=== PATIENT | male | born 1975 | race African-American/Black ===

== ENCOUNTER 2023-08-27 10:28 | Outpatient (AMB) | payer OTHER, SELFPAY ==
--- NOTE | 2023-08-27 10:26 | MHC.OFFVIS ---
Intake Vital Signs 08/27/23 10:30 Height 5 ft 8 in Weight 187 lb 6 oz BMI 28.5 BP 114/66 Blood Pressure Location Rt brachial Position Sitting Pulse 93 Pulse Source Pulse Oximeter Pulse Oximetry (%) 98 Oxygen Delivery Method Room Air Intake Visit Reasons: Proteinuria/ Confirmed Allergies No Known Allergies Allergy (Verified 08/27/23 10:31) HPI HPI Comments History of Present Illness Details I had the privilege of seeing Mr. Ferraro in consultation for high serum creatinine. He is 47 years of age and has been in good health. His serum creatinine had been fluctuating between 1.3-1.5 for the last couple years, 1.5 being quite recent. He is not a diabetic or hypertensive. He has no history of drug use. He has no history of proteinuria, retinopathy or LVH. He used to take nonsteroidal anti-inflammatories for migraine and PPI for acid reflux. Ever since his recent lab work, he seldom takes both of them. He does not have any nausea, vomiting, diarrhea, shortness of breath, proximal nocturnal dyspnea, orthopnea, pedal edema, hematuria, renal stones, coronary artery disease, congestive heart failure, carotid stenosis, peripheral arterial disease, renal artery stenosis, new bone or back pain. He never had any history of high serum calcium. He denies any history of hepatitis or HIV. He does not get any recurrent sore throat, epistaxis, hemoptysis, photosensitivity, skin rashes. He has no sensorineural hearing deficits. He has no acral tingling or paresthesia. He has been having some cough and some weight loss. He feels he is going through a lot of stressors at work and is currently going through divorce. He is concerned about his high serum creatinine. One of his elder brothers has CKD and diabetes mellitus. [facility] Medical History Allergic rhinitis Hyperlipidemia Eczema Contact dermatitis Migraine Pain of left hip joint Knee pain, left GERD (gastroesophageal reflux disease) Wrist joint pain Li's palsy Ventricular premature complex Palpitations Vitamin D deficiency Surgical History S/P rotator cuff repair Family History Father Malignant neoplasm of lung Social History Patient Tobacco Use Status: Never used Tobacco Review of Systems Const All systems reviewed & are unremarkable except as noted in HPI and below Physical Exam Vital Signs: Last Vital Signs Pulse 93 08/27/23 10:30 BP 114/66 08/27/23 10:30 Pulse Ox 98 08/27/23 10:30 Oxygen Delivery Method Room Air 08/27/23 10:30 BMI result Body Mass Index 28.5 Const General: comfortable and no acute distress Orientation/consciousness: patient oriented x3 HEENT Head: Yes normocephalic Mouth: Normal oral and palatal mucosa present Eyes EOM: EOMs intact bilaterally Neck Neck: Yes supple Resp Auscultation: clear to auscultation bilaterally Cardio Jugular venous distension: no JVD Rate: regular rate GI Palpation (GI): Soft to palpation Auscultation: normal bowel sounds General: Yes no CVA tenderness Back/Spine/Pelvis Back: no CVA tenderness Skin General skin exam: no rashes or lesions noted Neuro General: patient oriented x3 and moves all extremities Extrem General: Yes no pedal edema Assessment & Plan Assessment & Plan (1) High serum creatinine: Code(s): R79.89 - Other specified abnormal findings of blood chemistry Plan Mr Ferraro has been having fluctuating higher creatinine than usual for the last couple years, 1.5 being the recent one. He has increased muscle mass. He does not take any creatine. Whether he had an VERONICA in the past with resultant drop in GFR or his higher serum creatinine is due to nonsteroidal anti-inflammatory intake/PPI need to be ascertained. If both are ruled out, it can also be due to his higher muscle mass. I have ordered extensive workup including blood work and urine studies as well as renal ultrasound. If he has lower GFR and a definite etiology has not been detected, he may need a renal biopsy. He is avoiding nonsteroidal anti-inflammatories and PPI for now which I encouraged. He needs to maintain hydration. I did not make any medication changes today. All these possibilities have been discussed in detail and I answered all his questions. Further management has been involving data. Follow-up appointment given in a month Orders: Orders Hepatitis B Surface Antigen Today R79.89 - Other specified abnormal findings of blood chemistry ACACIA Reflex Titer and Pattern Today R79.89 - Other specified abnormal findings of blood chemistry Neutrophil Cytoplasma Ab Today R79.89 - Other specified abnormal findings of blood chemistry Myeloperoxidase Antibody Today R7. - Other specified abnormal findings of blood chemistry Complement C3 Today R7. - Other specified abnormal findings of blood chemistry Complement C4 Today R7. - Other specified abnormal findings of blood chemistry Parathyroid Hormone Intact Today R7. - Other specified abnormal findings of blood chemistry CK, Total+Isoenzymes, Serum Today R7. - Other specified abnormal findings of blood chemistry US renal BI Today R7. - Other specified abnormal findings of blood chemistry Blood Urea Nitrogen Today R79. - Other specified abnormal findings of blood chemistry Electrolytes Today R7. - Other specified abnormal findings of blood chemistry Calcium Today R7. - Other specified abnormal findings of blood chemistry Creatinine Today R7. - Other specified abnormal findings of blood chemistry Hepatitis B Surface Antibody Today R7. - Other specified abnormal findings of blood chemistry Hepatitis B Core Antibody Today R7. - Other specified abnormal findings of blood chemistry Anti DNA DS Antibody Today R7. - Other specified abnormal findings of blood chemistry Proteinase 3 PR3 Antibodies Today R79. - Other specified abnormal findings of blood chemistry Anti Glomerular Basement Memb Today R7. - Other specified abnormal findings of blood chemistry Streptolysin O Antibody Today R7. - Other specified abnormal findings of blood chemistry Immunofixation Pnl, Serum Today R79. - Other specified abnormal findings of blood chemistry Phospholipase A2 Receptor Pnl Today R7. - Other specified abnormal findings of blood chemistry Protein Creatinine Ratio, Ur Today R7. - Other specified abnormal findings of blood chemistry Creatinine Clearance Urine Today R7. - Other specified abnormal findings of blood chemistry Coding Level of Care Code New Pt Level 4 (69673) Diagnoses High serum creatinine
[2023-08-27 10:30] VITALS: BP 114/66; PULSE 93; O2SAT 98; BMI 28.5
== END 2023-08-27 11:01 | disposition home or self-care (01) ==
PROVIDERS: PCP Pediatrics; Visit Provider Internal Medicine Nephrology
DX: R79.89 Other specified abnormal findings of blood chemistry (principal)
CPT/HCPCS: 99204

== ENCOUNTER → 2023-08-27 10:28 | Outpatient (BNVA) | payer OTHER, SELFPAY | PROVIDERS: PCP Pediatrics; Visit Provider Internal Medicine Nephrology ==

== ENCOUNTER 2023-09-06 15:07 | Outpatient (REF) | payer OTHER, SELFPAY ==
--- NOTE | ~2023-09-06 | US_ITS ---
EXAMINATION: US RETROPERITONEAL LIMITED (RENAL ONLY) CLINICAL INFORMATION: Elevated creatinine.. COMPARISON: None available. TECHNIQUE: Routine grayscale imaging of kidneys is performed. FINDINGS: RIGHT KIDNEY: 9.3 x 4.4 x 4.2 cm (SAG x AP x TRV). The kidney is normal in size, contour, and echogenicity. Renal cortical thickness is normal. No calculi or focal parenchymal lesions. No hydronephrosis. LEFT KIDNEY: 10.2 x 4.8 x 5.4 cm (SAG x AP x TRV). The kidney is normal in size, contour, and echogenicity. Renal cortical thickness is normal. No calculi or focal parenchymal lesions. No hydronephrosis. US/US renal BI IMPRESSION: Unremarkable renal ultrasound.
== END 2023-09-06 15:08 | disposition home or self-care (01) ==
LOC: HO.US 15:07
PROVIDERS: PCP Pediatrics; Visit Provider Internal Medicine Nephrology
DX: R79.89 Other specified abnormal findings of blood chemistry (principal)
CPT/HCPCS: 76775

== ENCOUNTER 2023-10-01 10:59 | Outpatient (AMB) | payer OTHER, SELFPAY ==
[2023-10-01 11:18] VITALS: BP 122/84; PULSE 71; O2SAT 98; BMI 28.0
--- NOTE | 2023-10-01 11:18 | HO.NEPHOV_ITS ---
HPI HPI Comments History of Present Illness Details I had the privilege of seeing Mr. Ferraro in follow up for high serum creatinine. He is 47 years of age and has been in good health. His serum creatinine had been fluctuating between 1.3-1.5 for the last couple years, 1.5 being quite recent. He is not a diabetic or hypertensive. He has no history of drug use. He has no history of proteinuria, retinopathy or LVH. He used to take nonsteroidal anti-inflammatories for migraine and PPI for acid reflux. Ever since his recent lab work, he seldom takes both of them. He does not have any nausea, vomiting, diarrhea, shortness of breath, proximal nocturnal dyspnea, orthopnea, pedal edema, hematuria, renal stones, coronary artery disease, congestive heart failure, carotid stenosis, peripheral arterial disease, renal artery stenosis, new bone or back pain. He never had any history of high serum calcium. He denies any history of hepatitis or HIV. He does not get any recurrent sore throat, epistaxis, hemoptysis, photosensitivity, skin rashes. He has no sensorineural hearing deficits. He has no acral tingling or paresthesia. He has been having some cough and some weight loss. He feels he is going through a lot of stressors at work and is currently going through divorce. He is concerned about his high serum creatinine. One of his elder brothers has CKD and diabetes mellitus. [facility] Medical History Allergic rhinitis Hyperlipidemia Eczema Contact dermatitis Migraine Pain of left hip joint Knee pain, left GERD (gastroesophageal reflux disease) Wrist joint pain Li's palsy Ventricular premature complex Palpitations Vitamin D deficiency Surgical History S/P rotator cuff repair Family History Father Malignant neoplasm of lung Social History Patient Tobacco Use Status: Never used Tobacco Vital Signs 10/01/23 11:18 Height 5 ft 8 in Weight 184 lb 6 oz BMI 28.0 BP 122/84 Blood Pressure Location Lt brachial Position Sitting Pulse 71 Pulse Source Pulse Oximeter Pulse Oximetry (%) 98 Oxygen Delivery Method Room Air Physical Exam Vital Signs: Last Vital Signs Pulse 71 10/01/23 11:18 BP 122/84 10/01/23 11:18 Pulse Ox 98 10/01/23 11:18 Oxygen Delivery Method Room Air 10/01/23 11:18 BMI result Body Mass Index 28.0 Const General: comfortable and no acute distress Orientation/consciousness: patient oriented x3 HEENT Head: Yes normocephalic Mouth: Normal oral and palatal mucosa present Eyes EOM: EOMs intact bilaterally Neck Neck: Yes supple Resp Auscultation: clear to auscultation bilaterally Cardio Jugular venous distension: no JVD Rate: regular rate GI Palpation (GI): Soft to palpation Auscultation: normal bowel sounds General: Yes no CVA tenderness Back/Spine/Pelvis Back: no CVA tenderness Skin General skin exam: no rashes or lesions noted Neuro General: patient oriented x3 and moves all extremities Extrem General: Yes no pedal edema Assessment & Plan Assessment & Plan (1) High serum creatinine: Code(s): R79.89 - Other specified abnormal findings of blood chemistry Plan Mr Ferraro has been having fluctuating higher creatinine than usual for the last couple years, 1.5 being the recent one. He has increased muscle mass. He does not take any creatine. Whether he had an VERONICA in the past with resultant drop in GFR or his higher serum creatinine is due to nonsteroidal anti-inflammatory intake/PPI need to be ascertained. If both are ruled out, it can also be due to his higher muscle mass. I have ordered extensive workup including blood work and urine studies . His renal ultrasound was unremarkable. If he has lower GFR and a definite etiology has not been detected, he may need a renal biopsy. He is avoiding nonsteroidal anti-inflammatories and PPI for now which I encouraged. He needs to maintain hydration. I did not make any medication changes today. All these possibilities have been discussed in detail and I answered all his questions. Further management has been involving data. Follow-up appointment given Coding Level of Care Code Est Pt Level 3 (89656) Diagnoses High serum creatinine R79.89 Results Reviewed Nephrology Results: Renal US 09/06/23
== END 2023-10-01 11:58 | disposition home or self-care (01) ==
PROVIDERS: PCP Pediatrics; Visit Provider Internal Medicine Nephrology
DX: R79.89 Other specified abnormal findings of blood chemistry (principal)
CPT/HCPCS: 99213

== ENCOUNTER → 2023-10-01 10:59 | Outpatient (BNVA) | payer OTHER, SELFPAY | PROVIDERS: PCP Pediatrics; Visit Provider Internal Medicine Nephrology ==

== ENCOUNTER 2023-10-01 11:39 | Outpatient (REF) | payer OTHER, SELFPAY ==
[2023-10-01 13:00] LABS: Anion Gap 9 (12-20); Blood Urea Nitrogen 9 mg/dL (9-16); Calcium 9.9 mg/dL (8.4-10.2); Carbon Dioxide 31 mmol/L (22-29); Chloride 105 mmol/L (96-108); Estimated Glomerular Filt Rate > 60; Potassium 4.1 mmol/L (3.3-5.1); Sodium 141 mmol/L (135-145)
[2023-10-01 13:11] LABS: Parathyroid Hormone Intact 24.3 pg/mL (8.7-77.1)
[2023-10-02 04:43] LABS: HBc Num1 0.07 S/CO (0.00-0.79); Hepatitis B Core Antibody Nonreactive (Nonreactive); Hepatitis B Surface Antigen Negative (Negative); ~Hepatitis B Surface Antibody NONREACTIVE (Nonreactive)
[2023-10-02 17:23] LABS: Streptolysin O Antibody <50 IU/mL (<200)
[2023-10-04 11:49] LABS: Neutrophil Cyto Ab Screen NEGATIVE (NEGATIVE)
[2023-10-04 13:19] LABS: IgA 187 mg/dL (47-310); IgG 1311 mg/dL (600-1640); IgM 58 mg/dL (50-300)
[2023-10-05 14:44] LABS: Anti Nuclear Antibody Screen NEGATIVE (NEGATIVE)
[2023-10-05 23:34] LABS: CK-BB None Detected (None Detected); CK-MB 0 % (<5); CK-MM 100 % (95-100); Creatine Kinase,Total,Serum 129 U/L (44-196)
[2023-10-08 07:38] LABS: Anti DNA DS Antibody <1 IU/mL; Anti Glomerular Basement Memb <1.0 AI; Myeloperoxidase Antibody <1.0 AI; Proteinase 3 PR3 Antibodies <1.0 AI
[2023-10-09 16:48] LABS: Phospholipase A2 IgG ELISA <4 RU/mL; Phospholipase A2 IgG IFA NEGATIVE (NEGATIVE)
== END 2023-10-01 11:40 | disposition home or self-care (01) ==
LOC: HO.HKASLDS 11:39
PROVIDERS: Visit Provider Internal Medicine Nephrology
DX: R79.89 Other specified abnormal findings of blood chemistry (principal)
CPT/HCPCS: 36415; 80051; 82310; 82552; 82565; 82784; 83520; 83970; 84520; 86021; 86036; 86038; 86060; 86160; 86225; 86255; 86334; 86704; 86706; 87340

== ENCOUNTER 2023-10-07 11:12 | Outpatient (REF) | payer OTHER, SELFPAY ==
[2023-10-07 12:13] LABS: Estimated Glomerular Filt Rate 51
[2023-10-07 13:48] LABS: Creatinine (CrCl) 1.48 mg/dL (0.5-1.4)
[2023-10-07 13:52] LABS: Total Volume 24 Hour Urine 975 mL
[2023-10-07 14:38] LABS: Creatinine, 24Hr Urine 1.9 G/Day (1.0-2.0); Creatinine, mg/dL 198.92
== END 2023-10-07 11:13 | disposition home or self-care (01) ==
LOC: HO.LAB 11:12
PROVIDERS: Visit Provider Internal Medicine Nephrology
DX: R79.89 Other specified abnormal findings of blood chemistry (principal)
CPT/HCPCS: 36415; 82565; 82575

== ENCOUNTER 2024-01-02 10:03 | Outpatient (AMB) | payer OTHER, SELFPAY ==
--- NOTE | 2024-01-02 10:07 | HO.NEPHOV_ITS ---
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 Ferraro in follow up for high serum creatinine. He is 47 years of age and has been in good health. His serum creatinine had been fluctuating between 1.3-1.5 for the last couple years, 1.5 being quite recent. He is not a diabetic or hypertensive. He has no history of drug use. He has no history of proteinuria, retinopathy or LVH. He used to take nonsteroidal anti-inflammatories for migraine and PPI for acid reflux. Ever since his recent lab work, he seldom takes both of them. He does not have any nausea, vomiting, diarrhea, shortness of breath, proximal nocturnal dyspnea, orthopnea, pedal edema, hematuria, renal stones, coronary artery disease, congestive heart failure, carotid stenosis, peripheral arterial disease, renal artery stenosis, new bone or back pain. He never had any history of high serum calcium. He denies any history of hepatitis or HIV. He does not get any recurrent sore throat, epistaxis, hemoptysis, photosensitivity, skin rashes. He has no sensorineural hearing deficits. He has no acral tingling or paresthesia. He has been having some cough and some weight loss. He feels he is going through a lot of stressors at work and is currently going through divorce. He is concerned about his high serum creatinine. One of his elder brothers has CKD and diabetes mellitus. [facility] Medical History Allergic rhinitis Hyperlipidemia Eczema Contact dermatitis Migraine Pain of left hip joint Knee pain, left GERD (gastroesophageal reflux disease) Wrist joint pain Li's palsy Ventricular premature complex Palpitations Vitamin D deficiency Surgical History S/P rotator cuff repair Family History Father Malignant neoplasm of lung Social History Patient Tobacco Use Status: Never used Tobacco Review of Systems Const All systems reviewed & are unremarkable except as noted in HPI and below Physical Exam Vital Signs: Last Vital Signs Pulse 84 01/02/24 10:08 BP 114/80 01/02/24 10:08 Pulse Ox 98 01/02/24 10:08 Oxygen Delivery Method Room Air 01/02/24 10:08 BMI result Body Mass Index 27.1 Const General: comfortable and no acute distress Orientation/consciousness: patient oriented x3 HEENT Head: Yes normocephalic Mouth: Normal oral and palatal mucosa present Eyes EOM: EOMs intact bilaterally Neck Neck: Yes supple Resp Auscultation: clear to auscultation bilaterally Cardio Jugular venous distension: no JVD Rate: regular rate GI Palpation (GI): Soft to palpation Auscultation: normal bowel sounds General: Yes no CVA tenderness Back/Spine/Pelvis Back: no CVA tenderness Skin General skin exam: no rashes or lesions noted Neuro General: patient oriented x3 and moves all extremities Extrem General: Yes no pedal edema Results Reviewed Nephrology Results: Sodium 141 mmol/L (135-145) 10/01/23 Potassium 4.1 mmol/L (3.3-5.1) 10/01/23 Chloride 105 mmol/L (96-108) 10/01/23 Carbon Dioxide 31 mmol/L (22-29) H 10/01/23 BUN 9 mg/dL (9-16) 10/01/23 Creatinine 1.48 mg/dL (0.5-1.4) H 10/07/23 Calcium 9.9 mg/dL (8.4-10.2) 10/01/23 PTH Intact 24.3 pg/mL (8.7-77.1) 10/01/23 Renal US 09/06/23 Assessment & Plan Assessment & Plan (1) High serum creatinine: Code(s): R79.89 - Other specified abnormal findings of blood chemistry Category: Medical Plan Mr Ferraro has been having fluctuating higher creatinine than usual for the last couple years, 1.5 being the recent one. He has increased muscle mass. He does not take any creatine. Whether he had an VERONICA in the past with resultant drop in GFR or his higher serum creatinine need to be ascertained. If both are ruled out, it can also be due to his higher muscle mass. I have ordered extensive workup including blood work and urine studies which has been unrevealing . His renal ultrasound was unremarkable. If he has lower GFR and a definite etiology has not been detected, he may need a renal biopsy. He is avoiding nonsteroidal anti-inflammatories and PPI for now which I encouraged. He needs to maintain hydration. I did not make any medication changes today. All these possibilities have been discussed in detail and I answered all his questions. Further management has been involving data. Follow-up appointment given Orders: Orders Blood Urea Nitrogen Today R7. - Other specified abnormal findings of blood chemistry Creatinine Clearance Urine 24U Today - Other specified abnormal findings of blood chemistry Creatinine 6 Months R7. - Other specified abnormal findings of blood chemistry Creatinine Today - Other specified abnormal findings of blood chemistry Electrolytes Today - Other specified abnormal findings of blood chemistry Blood Urea Nitrogen 6 Months . - Other specified abnormal findings of blood chemistry Electrolytes 6 Months . - Other specified abnormal findings of blood chemistry Coding Level of Care Code Est Pt Level 4 (03604) Diagnoses High serum creatinine .
[2024-01-02 10:08] VITALS: BP 114/80; PULSE 84; O2SAT 98; BMI 27.1
== END 2024-01-02 10:49 | disposition home or self-care (01) ==
PROVIDERS: PCP Pediatrics; Visit Provider Internal Medicine Nephrology
DX: R79.89 Other specified abnormal findings of blood chemistry (principal)
CPT/HCPCS: 99214

== ENCOUNTER → 2024-01-02 10:03 | Outpatient (BNVA) | payer OTHER, SELFPAY | PROVIDERS: PCP Pediatrics; Visit Provider Internal Medicine Nephrology ==

== ENCOUNTER 2024-01-02 10:38 | Outpatient (REF) | payer OTHER, SELFPAY ==
[2024-01-02 14:54] LABS: Anion Gap 10 (12-20); Blood Urea Nitrogen 16 mg/dL (9-16); Carbon Dioxide 28 mmol/L (22-29); Chloride 104 mmol/L (96-108); Estimated Glomerular Filt Rate > 60; Potassium 3.6 mmol/L (3.3-5.1); Sodium 138 mmol/L (135-145)
== END 2024-01-02 10:39 | disposition home or self-care (01) ==
LOC: HO.HKASLDS 10:38
PROVIDERS: Visit Provider Internal Medicine Nephrology
DX: R79.89 Other specified abnormal findings of blood chemistry (principal)
CPT/HCPCS: 36415; 80051; 82565; 84520

== ENCOUNTER 2024-07-23 15:33 | Outpatient (AMB) | payer OTHER, SELFPAY ==
--- NOTE | 2024-07-23 15:50 | HO.NEPHOV ---
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 Ferraro was seen in follow up for high serum creatinine. He is 48 years of age and has been in good health. His serum creatinine had been fluctuating between 1.3-1.5 for the last couple years, 1.28 being quite recent. He is not a diabetic or hypertensive. He has no history of drug use. He has no history of proteinuria, retinopathy or LVH. He used to take nonsteroidal anti-inflammatories for migraine and PPI for acid reflux. He does not have any nausea, vomiting, diarrhea, shortness of breath, proximal nocturnal dyspnea, orthopnea, pedal edema, hematuria, renal stones, coronary artery disease, congestive heart failure, carotid stenosis, peripheral arterial disease, renal artery stenosis, new bone or back pain. He never had any history of high serum calcium. He denies any history of hepatitis or HIV. He does not get any recurrent sore throat, epistaxis, hemoptysis, photosensitivity, skin rashes. He has no sensorineural hearing deficits. He has no acral tingling or paresthesia. He is currently going through divorce. One of his elder brothers has CKD and diabetes mellitus. There were no new complaints at the time of this office visit [facility] Medical History Allergic rhinitis Hyperlipidemia Eczema Contact dermatitis Migraine Pain of left hip joint Knee pain, left GERD (gastroesophageal reflux disease) Wrist joint pain Li's palsy Ventricular premature complex Palpitations Vitamin D deficiency Surgical History S/P rotator cuff repair Family History Father Malignant neoplasm of lung Social History Patient Tobacco Use Status: Never used Tobacco Review of Systems Const All systems reviewed & are unremarkable except as noted in HPI and below Physical Exam Vital Signs: Last Vital Signs Pulse 77 07/23/24 15:51 BP 122/80 07/23/24 15:51 Pulse Ox 95 07/23/24 15:51 Oxygen Delivery Method Room Air 07/23/24 15:51 BMI result Body Mass Index 27.3 Const General: comfortable and no acute distress Orientation/consciousness: patient oriented x3 HEENT Head: Yes normocephalic Mouth: Normal oral and palatal mucosa present Eyes EOM: EOMs intact bilaterally Neck Neck: Yes supple Resp Auscultation: clear to auscultation bilaterally Cardio Jugular venous distension: no JVD Rate: regular rate GI Palpation (GI): Soft to palpation Auscultation: normal bowel sounds General: Yes no CVA tenderness Back/Spine/Pelvis Back: no CVA tenderness Skin General skin exam: no rashes or lesions noted Neuro General: patient oriented x3 and moves all extremities Extrem General: Yes no pedal edema Results Reviewed Nephrology Results: Sodium 138 mmol/L (135-145) 01/02/24 Potassium 3.6 mmol/L (3.3-5.1) 01/02/24 Chloride 104 mmol/L (96-108) 01/02/24 Carbon Dioxide 28 mmol/L (22-29) 01/02/24 BUN 16 mg/dL (9-16) 01/02/24 Creatinine 1.28 mg/dL (0.5-1.4) 01/02/24 Calcium 9.9 mg/dL (8.4-10.2) 10/01/23 PTH Intact 24.3 pg/mL (8.7-77.1) 10/01/23 Renal US 09/06/23 Assessment & Plan Assessment & Plan (1) High serum creatinine: Code(s): R79.89 - Other specified abnormal findings of blood chemistry Category: Medical Plan Mr Ferraro has been having fluctuating higher creatinine than usual for the last couple years, 1.28 being the recent one. He has increased muscle mass. He does not take any creatine. Whether he had an VERONICA in the past with resultant drop in GFR or his higher serum creatinine need to be ascertained. His renal ultrasound was unremarkable. His last 24 hour urine collection showed GFR of over 90 mls/mt. W/U so far has been unyielding. He does not need a renal biopsy now. He is avoiding nonsteroidal anti-inflammatories and PPI for now which I encouraged. He needs to maintain hydration. I did not make any medication changes today. All these possibilities have been discussed in detail and I answered all his questions. Follow-up in a year unless there are any new active issues. Orders: Orders Blood Urea Nitrogen 12 Months - Other specified abnormal findings of blood chemistry UA and rflx microscopic 12 Months - Other specified abnormal findings of blood chemistry Protein Creatinine Ratio, Ur 12 Months - Other specified abnormal findings of blood chemistry Creatinine 12 Months - Other specified abnormal findings of blood chemistry Electrolytes 12 Months - Other specified abnormal findings of blood chemistry Coding Level of Care Code Est Pt Level 4 (18111) Diagnoses High serum creatinine
[2024-07-23 15:51] VITALS: BP 122/80; PULSE 77; O2SAT 95; BMI 27.3
== END 2024-07-23 16:04 | disposition home or self-care (01) ==
PROVIDERS: PCP Pediatrics; Visit Provider Internal Medicine Nephrology
DX: R79.89 Other specified abnormal findings of blood chemistry (principal)
CPT/HCPCS: 99214

== ENCOUNTER → 2024-07-23 15:33 | Outpatient (BNVA) | payer OTHER, SELFPAY | PROVIDERS: PCP Pediatrics; Visit Provider Internal Medicine Nephrology ==